=== PATIENT | male | born 1955 | race Caucasian/White ===

== ENCOUNTER → 2018-07-09 | Outpatient (REF) | payer MEDICARE, OTHER, MEDICAID ==
[2018-07-09 11:39] LABS: BASO % 0.5 % (0.0-1.0); EOS # 0.6 10^3/uL (0.0-0.50); HEMATOCRIT 37.6 % (42.0-52.0); HEMOGLOBIN 13.3 g/dl (13.5-17.5); IMMATURE GRANULOCYTE % 0.5 % (0-3.0); LYMPH # 2.1 10^3/uL (1.5-4.5); LYMPH % 25.8 % (24.0-44.0); MEAN CORPUSCULAR HEMOGLOBIN 34.7 pg (27.0-33.0); MEAN CORPUSCULAR HGB CONC 35.4 g/dl (32.0-36.5); MEAN CORPUSCULAR VOLUME 98.2 fl (80.0-96.0); NEUTROPHILS # 4.4 10^3/uL (1.8-7.7); NEUTROPHILS % 54.2 % (36.0-66.0); PLATELET COUNT, AUTOMATED 356 10^3/uL (150-450); RED BLOOD COUNT 3.83 10^6/uL (4.30-6.10); RED CELL DISTRIBUTION WIDTH 12.1 % (11.5-14.5); WHITE BLOOD COUNT 8.2 10^3/uL (4.0-10.0)
[2018-07-09 11:44] LABS: ALBUMIN 3.2 GM/DL (3.2-5.2); ALBUMIN/GLOBULIN RATIO 0.94 (1.00-1.93); ALKALINE PHOSPHATASE 78 U/L (45-117); ALT/SGPT 22 U/L (12-78); ANION GAP 6 MEQ/L (8-16); AST/SGOT 25 U/L (7-37); BILIRUBIN,TOTAL 0.4 MG/DL (0.2-1.0); BLOOD UREA NITROGEN 20 MG/DL (7-18); CALCIUM LEVEL 9.2 MG/DL (8.8-10.2); CARBON DIOXIDE LEVEL 29 MEQ/L (21-32); CHLORIDE LEVEL 95 MEQ/L (98-107); CHOLESTEROL LEVEL 188 MG/DL (<200); CHOLESTEROL RISK RATIO 2.112 (<5); CREATININE FOR GFR 0.99 MG/DL (0.70-1.30); GLOMERULAR FILTRATION RATE > 60.0 (>49); GLUCOSE, FASTING 98 MG/DL (70-100); HDL CHOLESTEROL 89 MG/DL (>40); LDL CHOLESTEROL 73 MG/DL (<100); MAGNESIUM LEVEL 1.9 MG/DL (1.8-2.4); NON-HDL-C 99 MG/DL; POTASSIUM SERUM 5.1 MEQ/L (3.5-5.1); SODIUM LEVEL 130 MEQ/L (136-145); TOTAL PROTEIN 6.6 GM/DL (6.4-8.2); TRIGLYCERIDES LEVEL 129 MG/DL (<150)
[2018-07-09 12:31] LABS: HEPATITIS C VIRUS ABY INDEX < 0.0 INDEX (<0.8)
== END ==
LOC: M LABDRAW1 10:46
DX: Z13.818 Encounter for screening for other digestive system disorders (principal); I10 Essential (primary) hypertension; R25.2 Cramp and spasm
CPT/HCPCS: 83735

== ENCOUNTER → 2019-07-04 | Outpatient (REF) | payer MEDICARE, MEDICAID ==
[~2019-07-04] MED LIST: ASPI-1 PO; HYDR-2541 PO; LEXA1TAB; LISI-542 PO; LISI10TA4 PO; PERC5TAB12 PO; SOMA250T; VENTAER
[2019-07-04 11:41] LABS: BASO # 0.1 10^3/uL (0.0-0.2); BASO % 0.7 % (0.0-1.0); EOS # 0.5 10^3/uL (0.0-0.5); EOS % 7.2 % (0.0-3.0); HEMOGLOBIN 12.6 g/dl (13.5-17.5); LYMPH # 1.6 10^3/uL (1.5-5.0); LYMPH % 23.1 % (24.0-44.0); MEAN CORPUSCULAR HEMOGLOBIN 35.1 pg (27.0-33.0); MEAN CORPUSCULAR VOLUME 100.3 fl (80.0-96.0); MONO # 0.9 10^3/uL (0.0-0.8); NEUTROPHILS # 3.9 10^3/uL (1.5-8.5); NEUTROPHILS % 55.7 % (36.0-66.0); PLATELET COUNT, AUTOMATED 387 10^3/uL (150-450); RED BLOOD COUNT 3.59 10^6/uL (4.30-6.10); WHITE BLOOD COUNT 6.9 10^3/uL (4.0-10.0)
[2019-07-04 12:13] LABS: CHOLESTEROL RISK RATIO 1.68 (<5)
[2019-07-04 12:52] LABS: HEMOGLOBIN A1c 5.3 %
== END ==
LOC: M LABDRAW1 10:31
PROVIDERS: ATTEND Family Medicine
DX: I10 Essential (primary) hypertension (principal); Z79.899 Other long term (current) drug therapy; Z79.82 Long term (current) use of aspirin

== ENCOUNTER 2020-11-29 10:46 | Emergency (ER) | payer MEDICAID, MEDICARE ==
[~2020-11-29] VITALS: Ht 168.9 cm; Wt 50.4 kg
[2020-11-29 10:46] VITALS: BP 181/99
[~2020-11-29 10:46] MED LIST changes: -LISI-542 PO; +LISI-898 PO; +LISI10TA22 PO; -LISI10TA4 PO
--- NOTE | 2020-11-29 11:31 | REP ---
INDICATION: r/o inguinal hernia. COMPARISON: None. TECHNIQUE: Real-time sonographic evaluation of inguinal regions performed at rest and with Valsalva maneuver. FINDINGS: There is a right inguinal hernia which contains peritoneal fat and bowel. The hernia is not reducible with transducer pressure. There is no left inguinal hernia present. IMPRESSION: Non reducible right inguinal hernia containing peritoneal fat and bowel loops. <Electronically signed by David Abrams > 11/29/20 1121
== END 2020-11-29 11:36 | disposition home or self-care (01) ==
LOC: M ED 10:46
DX: K40.90 Unilateral inguinal hernia, without obstruction or gangrene, not specified as recurrent (principal); I10 Essential (primary) hypertension; J44.9 Chronic obstructive pulmonary disease, unspecified; F32.9 Major depressive disorder, single episode, unspecified; G89.29 Other chronic pain; M54.9 Dorsalgia, unspecified

== ENCOUNTER → 2021-01-21 | Outpatient (CLI) | payer MEDICARE ==
[2021-01-21 11:57] LABS: HEMATOCRIT 42.1 % (42.0-52.0); HEMOGLOBIN 14.7 g/dl (13.5-17.5); MEAN CORPUSCULAR HEMOGLOBIN 34.2 pg (27.0-33.0); MEAN CORPUSCULAR HGB CONC 34.9 g/dl (32.0-36.5); MEAN CORPUSCULAR VOLUME 97.9 fl (80.0-96.0); PLATELET COUNT, AUTOMATED 258 10^3/uL (150-450); WHITE BLOOD COUNT 6.8 10^3/uL (4.0-10.0)
[2021-01-21 12:37] LABS: ALBUMIN 2.7 GM/DL (3.2-5.2); ALT/SGPT 48 U/L (12-78); BILIRUBIN,TOTAL 0.5 MG/DL (0.2-1.0); BLOOD UREA NITROGEN 9 MG/DL (7-18); CALCIUM LEVEL 9.3 MG/DL (8.8-10.2); CARBON DIOXIDE LEVEL 26 MEQ/L (21-32); CHLORIDE LEVEL 101 MEQ/L (98-107); CREATININE FOR GFR 0.69 MG/DL (0.70-1.30); GLOMERULAR FILTRATION RATE > 60.0 (>49); GLUCOSE, FASTING 92 MG/DL (70-100); POTASSIUM SERUM 4.4 MEQ/L (3.5-5.1); SODIUM LEVEL 135 MEQ/L (136-145); TOTAL PROTEIN 6.9 GM/DL (6.4-8.2)
--- NOTE | 2021-01-21 20:32 | ECGEPIP ---
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
== END ==
LOC: M LAB 11:20
PROVIDERS: ATTEND Family Medicine
DX: Z01.818 Encounter for other preprocedural examination (principal); Z20.822 Contact with and (suspected) exposure to COVID-19
CPT/HCPCS: 36415; 80053; 85027; 93005; U0003

== ENCOUNTER → 2021-01-21 | Outpatient (CLI) | payer MEDICARE | LOC: M LABSMTC 10:17 | PROVIDERS: ATTEND Anesthesiology | DX: Z01.818 Encounter for other preprocedural examination (principal); Z20.822 Contact with and (suspected) exposure to COVID-19 ==

== ENCOUNTER 2021-01-26 10:25 | Day surgery (SDC) | payer MEDICARE ==
[~2021-01-26] VITALS: Ht 167.6 cm; Wt 49.4 kg
[~2021-01-26 10:25] MED LIST changes: +ACETAMINOPHEN 1000MG 100ML IV BTL (OFIRMEV) (J0131 PER 10MG) As Ordered ONE; +LIDOCAINE 2% 100MG/5ML SDV (FOR ANES.) As Ordered ONE; +LR 1,000 ML IV ONE; +MIDAZOLAM INJ 2MG/2ML VIAL (J2250 PER 1MG) As Ordered ONE; +ONDANSETRON 4MG/2ML VIAL As Ordered ONE; +ROCURONIUM BROMIDE 50 MG/5 ML VIAL As Ordered ONE; +SUGAMMADEX SODIUM 500 MG/5 ML VIAL (BRIDION) As Ordered ONE; +ceFAZolin SOD 2 GM in IV 1 EA IV ONE; +dexameTHASONE 4 MG/ML 1ML VIAL (J1100 PER 1MG) As Ordered ONE; +fentaNYL 250 MCG/5 ML INJECTION (J3010) As Ordered ONE; +propofoL 200 MG/20 ML VIAL As Ordered ONE
[2021-01-26] MEDS ORDERED: BUPIVACAINE/EPIN 0.25% 30 ML VIAL As Ordered ONE (10:43)
[2021-01-26] MEDS ORDERED: LIDOCAINE 2% 100MG/5ML SDV (FOR ANES.) As Ordered ONE (11:02)
[2021-01-26] MEDS ORDERED: LEVALBUTEROL 1.25 MG/0.5 ML CONCENTRATE NEB As Ordered ONE (11:12)
[2021-01-26] MEDS ORDERED: MIDAZOLAM INJ 2MG/2ML VIAL (J2250 PER 1MG) As Ordered ONE (11:13)
[2021-01-26] MEDS ORDERED: LEVALBUTEROL 1.25 MG/0.5 ML CONCENTRATE NEB INH ONE (11:15)
[2021-01-26] MEDS ORDERED: MIDAZOLAM INJ 2MG/2ML VIAL (J2250 PER 1MG) IV PRN (11:20)
[2021-01-26] MEDS ORDERED: hydrALAZINE 20MG/ML 1ML VIAL (J0360 PER 20MG) As Ordered ONE (12:39)
[2021-01-26] MEDS ORDERED: HYDROmorphone HCL 2 MG/ML 1ML VIAL (J1170) As Ordered ONE (12:45)
[2021-01-26] MEDS ORDERED: LABETALOL 100MG/20ML VIAL As Ordered ONE (13:20)
[2021-01-26] MEDS ORDERED: HYDROMORPHONE HCL 0.5 MG/ 0.5 ML SYRINGE (J1170 PER 1) IV PRN (14:30)
[2021-01-26] MEDS ORDERED: oxyCODONE 5MG TAB PO PRN (14:30)
[2021-01-26] MEDS ORDERED: fentaNYL 100 MCG/2 ML INJECTION (J3010) IV PRN (14:30)
[2021-01-26] MEDS ORDERED: LR 1,000 ML IV SCH (14:30)
[2021-01-26] MEDS ORDERED: ONDANSETRON 4MG/2ML VIAL IV PRN (14:30)
[2021-01-26] MEDS ORDERED: NORCO, ANEXSIA 5/325MG TABLET (HYDROcodone/ACETAMINOPHEN) PO PRN (14:40)
[2021-01-26] MEDS ORDERED: NORCO, ANEXSIA 5/325MG TABLET (HYDROcodone/ACETAMINOPHEN) PO STA (14:58)
[2021-01-26 16:25] VITALS: BP 120/83
== END 2021-01-26 16:34 | disposition home or self-care (01) ==
LOC: M SDC 10:25
PROVIDERS: ATTEND Surgery
DX: K40.90 Unilateral inguinal hernia, without obstruction or gangrene, not specified as recurrent (principal); I10 Essential (primary) hypertension; F17.218 Nicotine dependence, cigarettes, with other nicotine-induced disorders; F12.10 Cannabis abuse, uncomplicated; F32.9 Major depressive disorder, single episode, unspecified; J44.9 Chronic obstructive pulmonary disease, unspecified
CPT/HCPCS: 49650; C1781; J0131; J0360; J0690; J1100; J1170; J2250; J2405; J3010; S2900